=== PATIENT | female | born 1960 | race Caucasian/White ===

== ENCOUNTER → 2017-06-13 | Outpatient (CLI) | payer OTHER ==
--- NOTE | 2017-06-14 07:17 | RAD ---
EXAM: PET/CT SKULL BASE TO MID THIGH 06/14/2017. HISTORY: History of right lung carcinoma status post right lower lobectomy COMPARISON: None. TECHNIQUE: CT was performed from the skull base through the mid thighs for the purposes of attenuation correction. 10.3 mCi F-18 fluorodeoxyglucose (FDG) was administered intravenously. After an uptake period, positron emission tomography was performed from the skull base through the mid thighs. The PET and CT data were fused and interpreted in combination a dedicated workstation. Blood glucose level was 113 mg/dL at the time of FDG administration. Findings: Examination is somewhat limited due to slight misregistration. Head and neck: No discrete hypermetabolic mass or lymphadenopathy in this region. Chest: There are postsurgical changes of a right lower lobectomy. There is moderate centrilobular emphysema. There is a right midlung nodule measuring 0.7 cm series 3/image 173 with only mild FDG uptake maximum SUV 1.4. There are 2 adjacent 0.4 cm noncalcified nodules in the medial right lower lung series 3/image 199 with no significant FDG uptake. There is a 0.6 cm noncalcified nodule in the right upper lung series 3/image 132 with no significant associated FDG uptake. There are patchy dependent left lower lobe peribronchial vascular opacities with no associated FDG uptake. There is mild scattered low-level FDG uptake throughout the mid and lower esophagus up to 2.7 Max SUV. There is a linear right axillary structure measuring 2.1 x 0.4 cm series 3 cm image 107 with mild FDG uptake maximum SUV 3.6. No suspicious hypermetabolic thoracic lymphadenopathy. Abdomen and pelvis: There is physiologic uptake in the kidneys with excretion into the renal collecting system. No suspicious focal hypermetabolic mass or lymphadenopathy in this region. Musculoskeletal: No suspicious focal hypermetabolic uptake. Uncorrected PET images: Uncorrected PET images demonstrate no additional abnormality. Low-dose CT findings: Three-vessel coronary artery calcifications. Abdominal aorta is normal in caliber with heavy aortoiliac calcified atheromatous disease. Impression: 1. Status post right lower lobectomy. 2. 4 right lung nodules, largest in the right midlung measuring 0.7 cm, with only mild associated FDG uptake similar to background. Nodule may be too small to characterize definitively by PET. Nodules are indeterminate between benign and malignant etiologies. If the nodule has progressively been increasing in size, consider percutaneous biopsy for further characterization. 3. Mild FDG uptake in the mid and lower esophagus which may be due to esophagitis. Clinical correlation is recommended. 4. Right axillary linear structure measuring up to 2.1 cm with mild FDG uptake, indeterminate. Differential considerations include posttherapeutic scarring with mild inflammatory uptake, though the structure is tubular and could represent superficial thrombophlebitis. Clinical correlation is recommended. Attention on follow-up is also recommended. 5. No hypermetabolic lymphadenopathy in the neck, chest, abdomen or pelvis. 6. Coronary artery and aortoiliac calcified atheromatous disease. 7. Moderate emphysema.
== END | disposition home or self-care (01) ==
LOC: PETSC 10:34
PROVIDERS: ATTEND Internal Medicine Hematology & Oncology
DX: C34.92 Malignant neoplasm of unspecified part of left bronchus or lung (principal); J43.2 Centrilobular emphysema; Z85.118 Personal history of other malignant neoplasm of bronchus and lung; Z90.2 Acquired absence of lung [part of]
CPT/HCPCS: 78815; A9552